=== PATIENT | female | born 1970 | race Two or more races ===

== ENCOUNTER 2020-05-11 19:20 | Emergency (ER) | payer BC ==
[~2020-05-11] VITALS: Ht 157.5 cm; Wt 68.5 kg
[2020-05-11] MEDS ORDERED: AMOX/K CLAV875 M1 PO (21:55)
[2020-05-11] MEDS ORDERED: ULTRAM50 M1 PO (21:55)
[2020-05-11 22:09] VITALS: BP 131/75
== END 2020-05-11 22:20 | disposition home or self-care (01) | DRG 605 ==
LOC: ED 19:20
DX: S91.351A Open bite, right foot, initial encounter (principal); W54.0XXA Bitten by dog, initial encounter; Y92.009 Unspecified place in unspecified non-institutional (private) residence as the place of occurrence of the external cause

== ENCOUNTER 2020-05-12 16:20 | Emergency (ER) | payer SELFPAY ==
[~2020-05-12 16:20] MED LIST: AMOX/K CLAV875 M1 PO; ULTRAM50 M1 PO
== END 2020-05-12 17:05 | disposition left against medical advice (07) | DRG 951 ==
LOC: ED 16:20 → LWOBS 17:05
DX: Z53.21 Procedure and treatment not carried out due to patient leaving prior to being seen by health care provider (principal)

== ENCOUNTER 2020-05-13 16:49 | Emergency (ER) | payer BC ==
[~2020-05-13] VITALS: Ht 157.5 cm; Wt 66.3 kg
[2020-05-13 18:05] VITALS: BP 117/55
== END 2020-05-13 18:05 | disposition home or self-care (01) | DRG 950 ==
LOC: ED 16:49
DX: S91.351D Open bite, right foot, subsequent encounter (principal); W54.0XXD Bitten by dog, subsequent encounter; J02.9 Acute pharyngitis, unspecified